=== PATIENT | male | born 1970 | race Caucasian/White ===

== ENCOUNTER 2022-10-29 09:34 | Day surgery (SDC) | payer OTHER ==
[~2022-10-29] VITALS: Ht 177.8 cm; Wt 112.5 kg
[2022-10-29] MEDS ORDERED: LIDOCAINE 2% 100 MG/5 ML UJET TP ONE (10:30)
[2022-10-29] MEDS ORDERED: fentaNYL citrate 0.05 MG/ML VIAL ONE (10:30)
[2022-10-29] MEDS ORDERED: MIDAZOLAM 2 MG/2 ML VIAL ONE (10:30)
[2022-10-29] MEDS ORDERED: diphenhydrAMINE 50 MG/ML VIAL ONE (10:30)
[2022-10-29] MEDS ORDERED: MIDAZOLAM 2 MG/2 ML VIAL IVP ONE (12:40)
[2022-10-29] MEDS ORDERED: fentaNYL citrate 0.05 MG/ML VIAL IVP ONE (12:40)
== END 2022-10-29 12:18 | disposition home or self-care (01) ==
LOC: MDS 09:34 → MMU 09:36 → MDS 12:18
PROVIDERS: ATTEND Internal Medicine Gastroenterology
DX: Z12.11 Encounter for screening for malignant neoplasm of colon (principal); D12.2 Benign neoplasm of ascending colon; E11.9 Type 2 diabetes mellitus without complications; Z90.89 Acquired absence of other organs; Z79.84 Long term (current) use of oral hypoglycemic drugs; Z79.899 Other long term (current) drug therapy
CPT/HCPCS: 45380; 45385; J2250; J3010; J1200

== ENCOUNTER 2023-03-08 23:50 | Inpatient (IN) | payer OTHER ==
[~2023-03-08] VITALS: Ht 180.3 cm; Wt 112.5 kg
[2023-03-09 00:06] VITALS: BP 106/76; PULSE 91; RESP 20; TEMP 98; O2SAT 98
[2023-03-09] MEDS ORDERED: NACL 0.9% 1,000 ML IV ONE (02:25)
[2023-03-09 02:46] LABS: BASOPHILS # (AUTO) 0.1 K/uL (0.00-0.22); EOSINOPHILS # (AUTO) 0.2 K/uL (0-0.4); EOSINOPHILS % (AUTO) 2.5 % (0.0-4.0); HEMATOCRIT 46.3 % (36-52); LYMPHOCYTES # (AUTO) 3.2 K/uL (2.0-11.5); LYMPHOCYTES % (AUTO) 39.1 % (20.5-51.1); MEAN CORPUSCULAR HEMOGLOBIN 32 pg (27-31); MEAN CORPUSCULAR HGB CONC 37 g/dL (33-37); MEAN CORPUSCULAR VOLUME 85.8 fL (80-94); MONOCYTES # (AUTO) 0.7 K/uL (0.8-1.0); MONOCYTES % (AUTO) 8.6 % (1.7-9.3); NEUTROPHILS % (AUTO) 48.8 % (42.2-75.2); PLATELET COUNT (AUTO) 208 K/uL (140-450); RED BLOOD CELL COUNT(AUTO) 5.39 MIL/uL (4.20-6.10); RED CELL DISTRIBUTION WIDTH 14.2 % (11.6-13.7); WHITE BLOOD COUNT (AUTO) 8.2 K/uL (4.8-10.8)
[2023-03-09 02:56] LABS: ANION GAP 12.9 (8-16); CALCIUM 8.9 mg/dL (8.5-10.1); CARBON DIOXIDE 27.9 mmol/L (21-32); CREATININE 0.8 mg/dL (0.6-1.3); POTASSIUM 3.8 mmol/L (3.5-5.1)
[2023-03-09] MEDS ORDERED: ONDANSETRON 4 MG/2 ML VIAL IVP ONE (03:10)
[2023-03-09] MEDS ORDERED: MECLIZINE 25 MG TAB PO ONE (03:10)
[2023-03-09] MEDS ORDERED: ONDANSETRON 4 MG/2 ML VIAL ONE (04:15)
[2023-03-09] MEDS ORDERED: MECLIZINE 25 MG TAB ONE (04:15)
[2023-03-09] MEDS ORDERED: METF-713 PO (07:23)
[2023-03-09] MEDS ORDERED: SITA100T8 PO (07:25)
[2023-03-09] MEDS ORDERED: POTASSIUM CHLORIDE 10 MEQ TABER PO PRN (07:35)
[2023-03-09] MEDS ORDERED: HYDROcodone/APAP 5/325 MG 1 TAB TAB PO PRN (07:35)
[2023-03-09] MEDS ORDERED: MORPHINE SULFATE 2 MG/ML SYR IVP PRN (07:35)
[2023-03-09] MEDS ORDERED: MAGNESIUM OXIDE 400 MG TAB PO PRN (07:35)
[2023-03-09] MEDS ORDERED: ONDANSETRON 4 MG/2 ML VIAL IVP PRN (07:35)
[2023-03-09] MEDS: NACL 0.9% 1,000 ML IV SCH ×2 (08:37→20:14)
[2023-03-09] MEDS: ACETAMINOPHEN 325 MG TAB PO PRN (09:31)
[2023-03-09] MEDS: ENOXAPARIN 40 MG/0.4 ML SYR SUBQ SCH (09:35)
[2023-03-09 22:35] VITALS: BP 142/87; PULSE 80; PULSE 91; RESP 18; TEMP 97; O2SAT 93
[2023-03-10] VITALS (11 sets, daily range): BP systolic 125–140; BP diastolic 78–84; PULSE 75–93; RESP 18; TEMP 97–98.4; O2SAT 92–96
[2023-03-10 05:11] LABS: BASOPHILS % (AUTO) 0.6 % (0.0-2.0); EOSINOPHILS # (AUTO) 0.2 K/uL (0-0.4); EOSINOPHILS % (AUTO) 2.1 % (0.0-4.0); HEMATOCRIT 44.3 % (36-52); LYMPHOCYTES # (AUTO) 1.9 K/uL (2.0-11.5); LYMPHOCYTES % (AUTO) 25.4 % (20.5-51.1); MEAN CORPUSCULAR HEMOGLOBIN 31 pg (27-31); MEAN CORPUSCULAR HGB CONC 36 g/dL (33-37); MEAN CORPUSCULAR VOLUME 86.5 fL (80-94); MONOCYTES # (AUTO) 0.6 K/uL (0.8-1.0); MONOCYTES % (AUTO) 7.8 % (1.7-9.3); NEUTROPHILS # (AUTO) 4.7 K/uL (1.8-7.7); NEUTROPHILS % (AUTO) 64.1 % (42.2-75.2); PLATELET COUNT (AUTO) 201 K/uL (140-450); RED BLOOD CELL COUNT(AUTO) 5.12 MIL/uL (4.20-6.10); RED CELL DISTRIBUTION WIDTH 13.6 % (11.6-13.7); WHITE BLOOD COUNT (AUTO) 7.3 K/uL (4.8-10.8)
[2023-03-10] MEDS: ACETAMINOPHEN 325 MG TAB PO PRN (06:03)
[2023-03-10 07:20] LABS: ANION GAP 14.6 (8-16); CALCIUM 8.9 mg/dL (8.5-10.1); CARBON DIOXIDE 26.3 mmol/L (21-32); CREATININE 0.8 mg/dL (0.6-1.3); POTASSIUM 3.9 mmol/L (3.5-5.1)
[2023-03-10] MEDS: NACL 0.9% 1,000 ML IV SCH (08:28)
[2023-03-10] MEDS: ENOXAPARIN 40 MG/0.4 ML SYR SUBQ SCH (08:28)
[2023-03-10] MEDS ORDERED: DEXTROSE 50% 50 ML SYR IVP PRN (09:00)
[2023-03-10] MEDS: BLOOD GLUCOSE MONITORING 1 DEV DEV FS SCH ×3 (11:23→20:28)
[2023-03-10] MEDS: INSULIN LISPRO SLIDING SCALE 100 UNITS/ML VIAL SUBQ PRN ×2 (11:24→20:37)
[2023-03-11] VITALS (8 sets, daily range): BP systolic 113–150; BP diastolic 76–95; PULSE 47–94; RESP 18; TEMP 97.2–98.5; O2SAT 93–97
[2023-03-11] MEDS: NACL 0.9% 1,000 ML IV SCH ×2 (03:16→09:35)
[2023-03-11 05:25] LABS: BASOPHILS % (AUTO) 0.6 % (0.0-2.0); EOSINOPHILS # (AUTO) 0.2 K/uL (0-0.4); EOSINOPHILS % (AUTO) 2.8 % (0.0-4.0); HEMATOCRIT 43.1 % (36-52); HEMOGLOBIN 15.7 g/dL (12.0-18.0); LYMPHOCYTES # (AUTO) 2.1 K/uL (2.0-11.5); LYMPHOCYTES % (AUTO) 28.6 % (20.5-51.1); MEAN CORPUSCULAR HEMOGLOBIN 31 pg (27-31); MEAN CORPUSCULAR HGB CONC 36 g/dL (33-37); MEAN CORPUSCULAR VOLUME 85.9 fL (80-94); MONOCYTES # (AUTO) 0.7 K/uL (0.8-1.0); MONOCYTES % (AUTO) 9.2 % (1.7-9.3); NEUTROPHILS # (AUTO) 4.4 K/uL (1.8-7.7); NEUTROPHILS % (AUTO) 58.8 % (42.2-75.2); PLATELET COUNT (AUTO) 196 K/uL (140-450); RED BLOOD CELL COUNT(AUTO) 5.02 MIL/uL (4.20-6.10); RED CELL DISTRIBUTION WIDTH 13.9 % (11.6-13.7); WHITE BLOOD COUNT (AUTO) 7.4 K/uL (4.8-10.8)
[2023-03-11 05:43] LABS: ANION GAP 11.3 (8-16); CALCIUM 8.9 mg/dL (8.5-10.1); CARBON DIOXIDE 28.4 mmol/L (21-32); CREATININE 0.7 mg/dL (0.6-1.3); POTASSIUM 3.7 mmol/L (3.5-5.1)
[2023-03-11] MEDS: BLOOD GLUCOSE MONITORING 1 DEV DEV FS SCH ×3 (06:50→16:30)
[2023-03-11] MEDS: ENOXAPARIN 40 MG/0.4 ML SYR SUBQ SCH (15:01)
[2023-03-11] MEDS ORDERED: ASPI-1822 PO (15:50)
[2023-03-11] MEDS ORDERED: ATOR40TA PO (15:50)
== END 2023-03-11 17:45 | disposition home or self-care (01) | DRG 48 ==
LOC: MED 23:50 → OBSVTOIN 03-09 07:34 → MTU 03-09 07:34
PROVIDERS: ADMIT Student in an Organized Health Care Education/Training Program; ATTEND Student in an Organized Health Care Education/Training Program
DX: G90.8 Other disorders of autonomic nervous system (principal); E11.65 Type 2 diabetes mellitus with hyperglycemia; E66.9 Obesity, unspecified; I10 Essential (primary) hypertension; Z68.36 Body mass index [BMI] 36.0-36.9, adult
CPT/HCPCS: 36415; 70450; 80048; 82948; 85025; 87081; 96361; 96374; 99285; J1650; J1815; J2405; J8597; Q9967